=== PATIENT | male | born 1985 | race Caucasian/White ===

== ENCOUNTER 2017-12-01 19:12 | Emergency (ER) | payer OTHER ==
[2017-12-01 19:38] VITALS: BP 122/60; RESP 18; TEMP 98.4
[2017-12-01] MEDS ORDERED: SULFAMETH-TMP DS STARTER PACK 2 TAB BTL PO STA (21:21)
[2017-12-01] MEDS ORDERED: CEPHALEXIN 500MG STARTER PACK 4 CAP BTL PO STA (21:22)
--- NOTE | 2017-12-01 21:24 | ED ---
General Adult HPI - General Chief complaint: Skin/Abscess/Foreign Body Stated complaint: Arm abscess Time Seen by Provider: 12/01/17 19:55 Source: patient, RN notes reviewed Mode of arrival: ambulatory Limitations: no limitations - History of Present Illness Initial comments: 32-year-old male presents to the emergency determine for a chief complaint of abscess on the left upper arm. Patient states this started 5 days ago. Patient states it has gotten better. He states he thought it would go away so did not come until today when he realized it would not go away on its own. Patient denies any fevers or chills. Patient has not tried warm compresses. Patient states today it did start draining somewhat. Patient denies having any abscesses previously. Patient denies any history of MRSA. Patient has no other complaints at this time including shortness of breath, chest pain, abdominal pain, nausea or vomiting, headache, or visual changes. - Related Data Previous Rx's Medication Instructions Recorded Cephalexin [Keflex] 500 mg PO Q6H 10 Days cap 12/01/17 Sulfamethox-Tmp 800-160Mg [Bactrim 1 tab PO Q12HR #20 tab 12/01/17 DS 800-160 mg] Allergies Allergy/AdvReac Type Severity Reaction Status Date / Time No Known Allergies Allergy Verified 12/01/17 19:38 Review of Systems ROS Statement: Those systems with pertinent positive or pertinent negative responses have been documented in the HPI. ROS Other: All systems not noted in ROS Statement are negative. Past Medical History Past Medical History: No Reported History History of Any Multi-Drug Resistant Organisms: None Reported Past Surgical History: No Surgical Hx Reported Past Psychological History: No Psychological Hx Reported Smoking Status: Current every day smoker Past Alcohol Use History: Occasional Past Drug Use History: None Reported General Exam Limitations: no limitations General appearance: alert, anxious Head exam: Present: atraumatic, normocephalic, normal inspection Eye exam: Present: normal appearance. Absent: scleral icterus, conjunctival injection ENT exam: Present: normal exam, mucous membranes moist Neck exam: Present: normal inspection, full ROM. Absent: tenderness, meningismus, lymphadenopathy Respiratory exam: Present: normal lung sounds bilaterally. Absent: respiratory distress, wheezes, rales, rhonchi, stridor Cardiovascular Exam: Present: regular rate, normal rhythm, normal heart sounds. Absent: systolic murmur, diastolic murmur, rubs, gallop, clicks Extremities exam: Present: full ROM (Full range of motion of the left arm), tenderness (Abscess is very tender to palpation), normal capillary refill ( Capillary refill less than 2 seconds and radial pulse 2+ the left upper extremity), other (Patient does have a 6 and a meter by 7 cm abscess noted on the left upper arm. Some evidence of cellulitic changes overlying the abscess as it is slightly erythematous. Abscess already has a small point of drainage. There is no streaking redness on the arm.) Neurological exam: Present: alert, oriented X3, CN II-XII intact Psychiatric exam: Present: normal affect, normal mood, anxious Course Vital Signs 12/01/17 19:34 Temperature 98.4 F Pulse Rate 108 H Respiratory 18 Rate Blood Pressure 122/60 O2 Sat by Pulse 98 Oximetry Procedures - Incision & Drainage Consent Obtained: verbal consent Time Out Performed?: Yes Site: upper extremity Anesthetic Used: lidocaine 1% Amount (mLs): 1 I&D Cleaning Method: Betadine Sterile Field Used?: Yes Scalpel Used: #11 Needle Aspiration Performed?: No I&D Drainage Obtained: Pus (significant amount), Blood Culture Obtained?: Yes Complications: pain Patient Tolerated Procedure: well Medical Decision Making - Medical Decision Making 32-year-old male presents to the emergency department for a chief complaint of abscess on the left upper arm. Patient states it has been there for about 5 days. Abscess is about 6 cm x 7 cm. Possible mild cellulitis overlying the abscess. Incision and drainage was performed and significant amount of purulent material was expelled. Patient does not have any streaking redness. No fevers in the emergency department. It is felt the patient can be treated outpatient with antibiotics. Patient agrees with this. Patient was given starter pack of Keflex and Bactrim. Aerobic wound culture was sent. Patient will take these antibiotics as well as the prescription for Keflex and Bactrim. He will do warm compresses. He was given the number to dermatology. Patient will return if abscess is growing instead of decreasing in size, he is developing fevers, or patient is having any other worsening symptoms such as spreading redness or streaking redness. Disposition Clinical Impression: Abscess Disposition: HOME SELF-CARE Condition: Good Instructions: Abscess Incision and Drainage (ED), Abscess (ED) Additional Instructions: Please take antibiotics as directed. Please use warm compresses multiple times a day to try to draw out infection. Return to the emergency department if you have any worsening symptoms including spreading redness streaking redness fevers or chills. If abscess is getting bigger in size and not decreasing return to the emergency department as well. Prescriptions: Cephalexin [Keflex] 500 mg PO Q6H 10 Days cap Sulfamethox-Tmp 800-160Mg [Bactrim DS 800-160 mg] 1 tab PO Q12HR #20 tab Is patient prescribed a controlled substance at d/c from ED?: No Referrals: Juan Francisco Zazueta DO [STAFF PHYSICIAN] - 1-2 days Rubin Griffiths MD [STAFF PHYSICIAN] - 1-2 days Time of Disposition: 21:19
[2017-12-01 21:36] VITALS: PULSE 98
== END 2017-12-01 21:37 | disposition home or self-care (01) ==
LOC: EC 19:12
DX: L02.414 Cutaneous abscess of left upper limb (principal); F17.200 Nicotine dependence, unspecified, uncomplicated
CPT/HCPCS: 10060; 87070; 87077; 87186; 87205; 99283